=== PATIENT | female | born 1985 | race Caucasian/White ===

== ENCOUNTER 2018-01-21 10:45 | Emergency (ER) | payer MEDICAID ==
[~2018-01-21] VITALS: Ht 152.4 cm; Wt 56.2 kg
[~2018-01-21 10:45] MED LIST: AMOX500 PO; CODACE30 PO; DIPH50 PO; EPIN.3I IM; FLUC150A PO; HYDACE5 PO; HYDHCL25 PO; IBUP600 PO; IBUP800 PO; MEDR150I IM; METPRE4DP PO; NAPR500 PO; Naprosyn500 MG PO; PHENA200 PO; PRED10 PO; Pepcid20 MG PO; Protonix40 MG PO; RXHYDACE PO; RXTRAM50 PO; SULTRIDS PO; TOBR.3OPSO OP; TRAM50 PO; TRIA80TC TOP; Ultram50 MG PO
[2018-01-21] MEDS ORDERED: Bactrim Ds Tab1 EACH PO (11:34)
[2018-01-21] MEDS ORDERED: Keflex500 MG PO (11:34)
== END 2018-01-21 11:55 | disposition home or self-care (01) ==
LOC: ER 10:45
DX: L02.416 Cutaneous abscess of left lower limb (principal); L03.116 Cellulitis of left lower limb
CPT/HCPCS: 10060; 99283-25

== ENCOUNTER 2018-11-10 18:05 | Emergency (ER) | payer OTHER ==
[~2018-11-10] VITALS: Ht 152.4 cm; Wt 59.0 kg
[~2018-11-10 18:05] MED LIST changes: +Bactrim Ds Tab1 EACH PO; +Keflex500 MG PO
== END 2018-11-10 19:04 | disposition home or self-care (01) ==
LOC: ER 18:05
DX: S63.502A Unspecified sprain of left wrist, initial encounter (principal); F17.200 Nicotine dependence, unspecified, uncomplicated; Z87.01 Personal history of pneumonia (recurrent); X58.XXXA Exposure to other specified factors, initial encounter
CPT/HCPCS: 29125; 73110; 99283-25

== ENCOUNTER 2020-05-22 12:08 | Emergency (ER) | payer OTHER ==
[~2020-05-22] VITALS: Ht 152.4 cm; Wt 56.7 kg
== END 2020-05-22 13:18 | disposition home or self-care (01) ==
LOC: ER 12:08
DX: L23.7 Allergic contact dermatitis due to plants, except food (principal); H66.90 Otitis media, unspecified, unspecified ear; F17.210 Nicotine dependence, cigarettes, uncomplicated
CPT/HCPCS: 96372; 99283-25; J2930

== ENCOUNTER 2021-07-29 18:24 | Emergency (ER) | payer OTHER ==
[~2021-07-29] VITALS: Ht 152.4 cm; Wt 61.2 kg
== END 2021-07-29 20:45 | disposition left against medical advice (07) ==
LOC: ER 18:24
DX: Z53.21 Procedure and treatment not carried out due to patient leaving prior to being seen by health care provider (principal)

== ENCOUNTER 2022-10-13 16:11 | Emergency (ER) | payer OTHER ==
[~2022-10-13] VITALS: Ht 152.4 cm; Wt 59.0 kg
[2022-10-13 16:16] VITALS: BP 124/95
== END 2022-10-13 17:44 | disposition home or self-care (01) ==
LOC: ER 16:11
DX: S90.121A Contusion of right lesser toe(s) without damage to nail, initial encounter (principal); F17.210 Nicotine dependence, cigarettes, uncomplicated; X50.1XXA Overexertion from prolonged static or awkward postures, initial encounter
CPT/HCPCS: 73630; 99283-25